=== PATIENT | female | born 1965 | race Caucasian/White ===

== ENCOUNTER 2018-12-16 16:00 | Inpatient (IN) | payer OTHER ==
[~2018-12-16] VITALS: Ht 152.4 cm; Wt 48.5 kg
[2018-12-16 16:32] LABS: Mean Platelet Volume 10.7 fL (9.1-12.4); NRBC ABSOLUTE 0.67 K/mm3 (0.00-0.02); NRBC Auto 7.1 /100 WBC (0.0-0.2); Platelet Count 315 K/mm3 (150-400); White Blood Cell Count 9.46 K/mm3 (4.00-11.30)
[2018-12-16 16:37] LABS: Mean Corpuscular HGB 22.2 pg (26.0-34.0); Mean Corpuscular HGB Conc 23.9 g/dL (31.5-36.5); Mean Corpuscular Volume 93 fL (80-100); Red Blood Cell Count 0.72 M/mm3 (3.80-5.20)
[2018-12-16 16:38] LABS: Hemoglobin 1.6 g/dL (11.5-16.0)
[2018-12-16 16:39] LABS: Hematocrit 6.7 % (33.0-51.0)
[2018-12-16 16:43] LABS: Magnesium, Blood 2.7 mg/dL (1.6-2.4)
[2018-12-16 16:47] LABS: Percent Saturation 2.4 % (15.0-50.0)
[2018-12-16 16:51] LABS: Alanine Aminotransfer (ALT/SGP 121 U/L (12-78); Albumin, Blood 2.6 g/dL (3.4-5.0); Albumin/Globulin Ratio 1.1 (0.8-1.8); Alk Phos 43 U/L (50-136); Aspartate Aminotrans (AST/SGOT 93 U/L (12-37); Bilirubin, Total 0.2 mg/dL (0.1-1.0); Blood Urea Nitrogen 25 mg/dL (8-24); Bun/Creatinine Ratio 30.1 (12.0-20.0); Calcium, Blood 7.5 mg/dL (8.5-10.1); Chloride, Blood 114 mmol/L (98-108); Creatinine, Blood 0.83 mg/dL (0.40-1.00); Globulin, Blood 2.3 g/dL (2.2-4.0); Glomerular Filtration Rate >60 (60-); Glucose, Blood 145 mg/dL (70-99); Potassium, Blood 3.4 mmol/L (3.5-5.5); Sodium, Blood 142 mmol/L (136-145); Total Protein, Blood 4.9 g/dL (6.4-8.2)
[2018-12-16 16:52] LABS: Anion Gap 20 mmol/L (6-16); CO2, Blood 8 mmol/L (21-32)
[2018-12-16 17:07] LABS: BASOPHILS PERCENT MAN 0 % (0-2); EOSINOPHILS PERCENT MAN 0 % (0-6); LYMPHOCYTES ABSOLUTE MAN 0.18 K/mm3 (0.84-5.20); LYMPHOCYTES PERCENT MAN 2 % (21-46); MONOCYTES PERCENT MAN 0 % (4-13); NEUTROPHILS ABSOLUTE MAN 9.27 K/mm3 (1.96-9.15); SEG NEUTROPHILS PERCENT MAN 98 % (41-73); TOTAL CELLS COUNTED 100
[2018-12-16 17:29] LABS: IMMATURE RETIC FRACTION 3.9 % (2.3-16.0); RETIC HGB EQUIVALENT 13.5 pg (28.20-36.60); RETICULOCYTE ABSOLUTE 0.0214 M/mm3 (0.0200-0.1100); RETICULOCYTE COUNT PERCENT 3.01 % (0.50-2.50)
[2018-12-16 17:32] LABS: Source, Urine Catheter
[2018-12-16 17:41] LABS: Bilirubin, Urine Neg (Neg); Blood, Urine Neg (Neg); Glucose Qualitative, Urine Neg (Neg); Ketones, Urine 2+ (Neg); Leukocyte Esterase, Urine Neg (Neg); Nitrite, Urine Neg (Neg); Protein, Urine Neg (Neg); Specific Gravity, Urine 1.015 (1.003-1.022); Urobilinogen, Urine NORM (Normal)
[2018-12-16 18:11] LABS: Appearance, Urine Clear (Clear); Color, Urine Pale Yellow (P-Yellow)
--- NOTE | 2018-12-16 19:49 | NUR ---
ASSESSMENT/ASSUMED CARE PT SITTING UP IN BED WATCHING TV. 3RD UNITS PRBC INFUSING. DENIES PAIN OR DISCOMFORT. ANSWERING QUESTIONS APPROP. LUNGS CLEAR ON ROOMAIR. RESP EVEN AND NONLABORED. DENIES SOB OR COUGH. HEART RATE REGULAR. PULSES STRONG. BT+ ABD SOFT AND NONTENDER. DENIES N/V. IV 20G TO LEFT AC SALINE LOCKED, SITE CLEAR. IV 18G TO RIGHT AC WITH BLOOD INFUSING. PT MOVING SELF AROUND IN BED
--- NOTE | 2018-12-16 20:52 | NUR ---
HYPOTENSION PT BECAME HYPOTENSIVE DURING CHANGE FROM 3RD UNIT PRBC TO 4TH. SBP 60-70. HOSPITALIST KAUSHIK NOTIFIED AND NS 1000ML BOLUS STARTED
--- NOTE | 2018-12-16 21:02 | NUR ---
HOSPITALIST HOSPITALIST KAUSHIK AT BEDSIDE TALKING WITH PT REGARDING [id number]. PT A&O ASWERING QUESTIONS
--- NOTE | 2018-12-16 21:25 | NUR ---
BLEEDING PT HAVING LARGE AMT MAROON LIQUID STOOL. FLEXI SEAL PLACED. HOSPITALIST KAUSHIK NOTIFIED
[2018-12-16 21:50] LABS: Hematocrit 18.1 % (33.0-51.0); Platelet Count 127 K/mm3 (150-400)
[2018-12-16 21:54] LABS: Hemoglobin 5.6 g/dL (11.5-16.0)
[2018-12-16 21:56] LABS: PCO2 Arterial 24.1 mmHg (35-45); PO2 Arterial 115 mmHg (80-100); pH Blood Arterial 7.42 (7.35-7.45)
--- NOTE | 2018-12-16 21:56 | NUR ---
DR MONTEZ AND DR WELCH AT BEDSIDE
--- NOTE | 2018-12-16 21:57 | NUR ---
TXA TRANSFUSION STARTED. PLATLETS INFUSING.
[2018-12-16 22:00] LABS: Calcium, Blood 6.5 mg/dL (8.5-10.1); Magnesium, Blood 2.1 mg/dL (1.6-2.4)
--- NOTE | 2018-12-16 22:15 | NUR ---
EMESIS PT HAVING MAROOON EMESIS. DR TSE AT BEDSIDE WITH DR WELCH. DR WELCH CALLING IN DR JONES AND TO SCOPE CREW TO DO EGD ON PT. PT MED WITH ZOFRAN. WILL BE STARTING NEOSYNEPHRIN AND INTUBATING PT.
[2018-12-16 22:19] LABS: International Normalized Ratio 1.36
--- NOTE | 2018-12-16 22:51 | NUR ---
CRITICAL VALUE DR TSE NOTIFIED REGARDING LACTIC ACID 3.6
--- NOTE | 2018-12-16 23:00 | NUR ---
INTUBATION PT STARTED ON NEOSYNPHRINE AT 50MCQ/MIN FOR HYPOTENSION, INCREASED TO 100 THAN 150 MCQ/MIN DURING INTUBATION. CORDIS PLACED IN RIGHT FEMORAL BY DR TSE FOR BLOOD PRODUCED INFUSION AT 2238. TRANSFUSED FFP AT 2238 AND 2244. PRBC INFUSING. PT MED WITH MIDAZOLAM AND PROPOFOL FOR INTUBATION. DR TSE INTUBATED PT WITH 7.5 ET TUBE AT 26 AT THE LIP WITH GOOD LUNGS SOUNDS BILAT AND COLOR CHANGE. DR JONES TO DO EGD.
--- NOTE | 2018-12-16 23:45 | NUR ---
EGD 2306 PT STARTED ON PROPOFOL GTT AT 20 MCQ/KG/MIN, GTT THEN INCREASED TO UP TO 50 MCQ/KG/MIN DURING EGD FOR SEDATION. PT HAD LARGE MAROON EMESIS AROUND ET TUBE. ET TUBE RETAPED TO 24 AT LIP BY RT PER ORDERS FROM DR TSE AFTER CXR DONE. EGD STARTED AT 2330 AND FINISHED AT [address] DR WELCH AT BEDSIDE. LARGE ULCER FOUND. NEOSYNEPHRINE DECREASED TO 100 MCQ/MIN.
--- NOTE | 2018-12-17 00:16 | NUR ---
12/17/18 0016 Paul Villalpando History, Chart, Medications and Allergies reviewed before start of procedure.MONITOR INTACT WITH CONTINUOUS PULSE OXIMETRY AND INTERMITTENT BP.3-LEAD EKG REVIEWED WITH PHYSICIAN PRIOR TO START OF PROCEDURE.PATIENT VENTILATED WITH PROPOFOL GTT.
[2018-12-17 00:43] LABS: Alanine Aminotransfer (ALT/SGP 59 U/L (12-78); Albumin, Blood 1.8 g/dL (3.4-5.0); Albumin/Globulin Ratio 1.1 (0.8-1.8); Alk Phos 36 U/L (50-136); Anion Gap 9 mmol/L (6-16); Aspartate Aminotrans (AST/SGOT 58 U/L (12-37); Bilirubin, Total 1.1 mg/dL (0.1-1.0); Blood Urea Nitrogen 25 mg/dL (8-24); Bun/Creatinine Ratio 33.3 (12.0-20.0); CO2, Blood 18 mmol/L (21-32); Calcium, Blood 6.6 mg/dL (8.5-10.1); Chloride, Blood 119 mmol/L (98-108); Creatinine, Blood 0.75 mg/dL (0.40-1.00); Globulin, Blood 1.6 g/dL (2.2-4.0); Glomerular Filtration Rate >60 (60-); Glucose, Blood 154 mg/dL (70-99); Sodium, Blood 146 mmol/L (136-145); Total Protein, Blood 3.4 g/dL (6.4-8.2)
--- NOTE | 2018-12-17 00:53 | NUR ---
CRITICAL LABS TROPONIN UP TO 7.22, NOTIFIED HOSPITALIST KAUSHIK. NO NEW ORDERS. H&H UP TO 09/28.0.
--- NOTE | 2018-12-17 01:34 | NUR ---
PRESSORS NEOSYNEPHRINE DC AND LEVOPHED STARTED AT 10 MCQ/MIN.
[2018-12-17 05:41] LABS: BASOPHILS ABSOLUTE AUTO 0.01 K/mm3 (0.00-0.23); BASOPHILS PERCENT AUTO 0 % (0-2); EOSINOPHILS PERCENT AUTO 0 % (0-6); Hematocrit 22.8 % (33.0-51.0); Hemoglobin 7.7 g/dL (11.5-16.0); IMMATURE GRAN ABSOLUTE AUTO 0.07 K/mm3 (0.00-0.10); IMMATURE GRAN PERCENT AUTO 1 % (0-1); LYMPHOCYTES ABSOLUTE AUTO 0.23 K/mm3 (0.84-5.20); LYMPHOCYTES PERCENT AUTO 2 % (21-46); MONOCYTES ABSOLUTE AUTO 0.48 K/mm3 (0.16-1.47); MONOCYTES PERCENT AUTO 3 % (4-13); Mean Corpuscular HGB 28.1 pg (26.0-34.0); Mean Corpuscular HGB Conc 33.8 g/dL (31.5-36.5); Mean Platelet Volume 10.1 fL (9.1-12.4); NEUTROPHILS ABSOLUTE AUTO 14.04 K/mm3 (1.96-9.15); NEUTROPHILS PERCENT AUTO 95 % (41-73); NRBC ABSOLUTE 0.99 K/mm3 (0.00-0.02); NRBC Auto 6.7 /100 WBC (0.0-0.2); Platelet Count 89 K/mm3 (150-400); RDW Coefficient Variation 15.3 % (11.7-14.2); RDW Standard Deviation 46.5 fL (35.1-46.3); Red Blood Cell Count 2.74 M/mm3 (3.80-5.20); White Blood Cell Count 14.83 K/mm3 (4.00-11.30)
[2018-12-17 05:50] LABS: Mean Corpuscular Volume 83 fL (80-100)
[2018-12-17 06:03] LABS: Anion Gap 8 mmol/L (6-16); Blood Urea Nitrogen 25 mg/dL (8-24); Bun/Creatinine Ratio 29.9 (12.0-20.0); CO2, Blood 18 mmol/L (21-32); Calcium, Blood 6.5 mg/dL (8.5-10.1); Chloride, Blood 121 mmol/L (98-108); Creatinine, Blood 0.84 mg/dL (0.40-1.00); Glomerular Filtration Rate >60 (60-); Glucose, Blood 114 mg/dL (70-99); Magnesium, Blood 1.8 mg/dL (1.6-2.4); Potassium, Blood 3.8 mmol/L (3.5-5.5); Sodium, Blood 147 mmol/L (136-145)
--- NOTE | 2018-12-17 06:52 | NUR ---
SHIFT SUMMARY PT RESTING QUIETLY AT THIS TIME. PT INTUBATED DURING THE NIGHT FOR AIRWAY PROTECTION DUE TO VOMITING BLOOD BY DR TSE. VENT SETTINGS AC 16 TV 400 PEEP 5 FIO2 25%. LUNGS CLEAR. HEART RATE REGULAR. BP STABLE ON LEVOPHED AT 10 MCQ/MIN. PT WAS STARTED ON NEOSYNEPHINE BEFORE INTUBATION AND CHANGED OVER TO LEVOPHED AFTER FIRST BAG FINISHED. PT RECEIVED 7 UNITS PRBC, 2 UNITS FFP, 1 UNIT PLATLET, 1 UNIT CRYO AND ONE TIME BOLUS OF TXA. MONITORING H&H TO KEEP HGB ABOVE 7. DR JONES DID EGD AFTER INTUBATION AND FOUND LARGE ULCER, INJECTED EPI. PT MAY NEED TO GO TO SURGERY. DR JONES SPOKE WITH DR KIRBY. DR TSE PLACED CORDIS TO RIGHT FEMORAL. FLEXI SEAL PLACED DUE TO LIQUID MAROON WITH 1100 ML PLUS OUT. OG TO LOW INTER SUCTION WITH 900 ML OUT OF MAROON DRAINAGE. REPORT TO ON COMING NURSE
--- NOTE | 2018-12-17 07:56 | NUR ---
Recieved report fro Xiomara RN. Patient laying supine in bed withHOB at 30m degrees. She is intubated and sedated. She has 7.5 ET 24 cm at lips with vent settingsAC 16, TV 400. FiO2 25% and PEEP 5.0 and sats 100%. She has OG in place to LIS with black/dark maroon output minimal amount <100 ms so far this shift. She has 14 Fr. jennings draing yel;low urine. She has rectal tube with black/dark maroon output moderate amounts approx 200ml this am. She has 20ga IV dressing intact amd site WNL's and is infusing propofol at 50 mcg/kg/min. She also ahs 20 ga LW dressing intact and site WNL's infusing Protonix at 10ml/hr. She has 18ga RAC dressing intact and site WNL's and has been flushed and SL'd. She has cordis right groing dressing intact and WNL's with no bleedibng or hematoma and is infusing Levophed 10mcg/min and just reduced to 9 for systolic s 114 and MAP >80 and NS at 150ml/hr. Patient has response to painful stimuli.
[2018-12-17 08:21] LABS: Hematocrit 24.5 % (33.0-51.0); Hemoglobin 8.4 g/dL (11.5-16.0)
--- NOTE | 2018-12-17 09:48 | NUR ---
Patient mother and friends are here. Dr Wray by and stopped fluids, talked with mother and gave her update. SS by and taled with family and friends. Her Hgb up to 8.4. Levophed remains at 9mcg/min with systolic 106 and MAP> 65. gave partial bath and cleaned bed from leaking rectal tube which remains dark maroon, minimal output from OG maroon. No changes in gtt and vent setting other than NS.
--- NOTE | 2018-12-17 11:30 | NUR ---
Echo in with patient doing procedure. Will reposition when they are done. DFamily has gone home. Sats 100% at same vent setting, SR-ST 90-100. Levophed remains at 9 mcg/min and systolic low 100's and MAP >65. No other changes with gtt's or vent settings. dr York by and assessed patient and no new changes.
--- NOTE | 2018-12-17 13:00 | NUR ---
Dr Chela mackey to assess and talked with Dr Wray and no new orders.
--- NOTE | 2018-12-17 13:30 | NUR ---
Reduced Levophed to 8 mcg/min and systolic low 100's and MAP >65. See EMT VSS. Reposition q2. No new signs of increased bleeding, rectal tube and OG have little maroon output.
[2018-12-17 14:12] LABS: Hematocrit 23.5 % (33.0-51.0); Hemoglobin 7.9 g/dL (11.5-16.0)
--- NOTE | 2018-12-17 15:15 | NUR ---
Per admit trigger, I attempted to meet with pt and family regarding ACP. Pt is alone in room and vented/nonresponsive. I will continue to attempt this conversation in coming days.
--- NOTE | 2018-12-17 15:30 | NUR ---
Have reduced Levophed to 5 mcg/min and systolic remaons above 100 and MAP >65. Dr Price was by to assess patient and possible scope 12/18. Dr Wray by to get update, hgb down from 8.4 to 7.9. VSS
--- NOTE | 2018-12-17 19:00 | NUR ---
ASSUMED CARE ASSUMED CARE OF PATIENT. PT REMAINS INTUBATED- AC 16, TV 400, PEEP 5, FIO2 25%. RR 20. SEDATED WITH PROPOFOL @ 50MCG/KG/MIN. BILATERAL SOFT WRIST RESTRAINTS IN PLACE. MONITOR SHOWS ST, RATE 130s. BP 40s/20s WITH LEVOPHED @ 3MCG/MIN. DR. QUIROZ IN ROOM. LEVOPHED INCREASED TO 10MCG/MIN AND THEN TO 20MCG/MIN. MODERATE AMOUNTS OF RED BLOOD NOTED FROM OG. RECTAL TUBE IN PLACE- NO INCREASE IN STOOL NOTED AT THIS TIME. LR IV BOLUS STARTED. DR. QUIROZ ATTEMPTING TO PLACE ARTERIAL LINE FOR MONITORING. VASOPRESSIN STARTED AT 0.04UNITS/MIN AT 1930. NEOSYNEPHRINE GTT STARTED. DR. KIRBY AND DR. MCALLISTER IN ROOM AT APPROXIMATELY 1999 TO DISCUSS TREATMENT PLAN. FAMILY NOTIFIED AND WILL BE COMING IN. PLAN IS TO TAKE PT TO FLIGHT SECURITY SPECIALIST FOR ANGIOGRAPHY TO CONTROL BLEEDING.
[2018-12-17 19:27] LABS: Hematocrit 18.6 % (33.0-51.0); Hemoglobin 6.4 g/dL (11.5-16.0)
--- NOTE | 2018-12-17 21:00 | NUR ---
PLATE SHEAR OPERATOR PT TO PLATE SHEAR OPERATOR FOR ANGIO PROCEDURE. LEVOPHED @ 30MCG/MIN AND NEOSYNEPHRINE @ 200MCG/MIN. VASOPRESSIN CONTINUES @ 0.04UNITS/MIN. PT HAS RECEIVED THREE UNITS OF PRBCs AND TWO UNITS OF FFP PRIOR TO GOING.
[2018-12-17 21:45] LABS: International Normalized Ratio 1.33; Prothrombin Time Results 13.7 Sec (9.7-11.5)
--- NOTE | 2018-12-17 23:05 | NUR ---
RETURN FROM TIME MOTION ANALYST BACK IN ROOM. NOW HAS LEFT FEMORAL ARTERIAL LINE- BP READING 190s/50s VIA A-LINE WHILE NIBP IS READING 90s/50s. LEVOPHED, VASOPRESSIN, AND NEOSYNEPHRINE INFUSING. PROPOFOL NOW AT 30MCG/KG/MIN.
[2018-12-18 00:37] LABS: PCO2 Arterial 26.8 mmHg (35-45); PO2 Arterial 134 mmHg (80-100); pH Blood Arterial 7.19 (7.35-7.45)
[2018-12-18 00:50] LABS: Hematocrit 19.7 % (33.0-51.0); Hemoglobin 6.6 g/dL (11.5-16.0)
[2018-12-18 00:58] LABS: Magnesium, Blood 1.7 mg/dL (1.6-2.4)
[2018-12-18 00:59] LABS: International Normalized Ratio 1.62; Prothrombin Time Results 16.4 Sec (9.7-11.5)
[2018-12-18 01:00] LABS: Mean Platelet Volume 12.4 fL (9.1-12.4)
[2018-12-18 01:01] LABS: Platelet Count 34 K/mm3 (150-400)
[2018-12-18 01:05] LABS: Albumin, Blood 1.2 g/dL (3.4-5.0); Bilirubin, Direct 0.3 mg/dL (0.0-0.3); Bilirubin, Indirect 0.5 mg/dL (0.1-0.7); Bilirubin, Total 0.8 mg/dL (0.1-1.0); Calcium, Blood 5.9 mg/dL (8.5-10.1); Globulin, Blood 1.2 g/dL (2.2-4.0); Total Protein, Blood 2.4 g/dL (6.4-8.2)
[2018-12-18 01:42] LABS: Anion Gap 14 mmol/L (6-16); Blood Urea Nitrogen 25 mg/dL (8-24); Bun/Creatinine Ratio 25.9 (12.0-20.0); CO2, Blood 12 mmol/L (21-32); Calcium, Blood 5.9 mg/dL (8.5-10.1); Chloride, Blood 120 mmol/L (98-108); Creatinine, Blood 0.97 mg/dL (0.40-1.00); Glomerular Filtration Rate >60 (60-); Glucose, Blood 294 mg/dL (70-99); Potassium, Blood 3.9 mmol/L (3.5-5.5); Sodium, Blood 146 mmol/L (136-145)
[2018-12-18 05:24] LABS: Hematocrit 27.7 % (33.0-51.0); Hemoglobin 9.9 g/dL (11.5-16.0)
[2018-12-18 05:26] LABS: pH Blood Arterial 7.43 (7.35-7.45)
[2018-12-18 05:27] LABS: PCO2 Arterial 26.5 mmHg (35-45); PO2 Arterial 133 mmHg (80-100)
[2018-12-18 05:38] LABS: International Normalized Ratio 1.29
[2018-12-18 05:57] LABS: Alanine Aminotransfer (ALT/SGP 224 U/L (12-78); Albumin, Blood 1.6 g/dL (3.4-5.0); Albumin/Globulin Ratio 0.9 (0.8-1.8); Alk Phos 45 U/L (50-136); Anion Gap 8 mmol/L (6-16); Aspartate Aminotrans (AST/SGOT 248 U/L (12-37); Bilirubin, Total 0.7 mg/dL (0.1-1.0); Blood Urea Nitrogen 22 mg/dL (8-24); Bun/Creatinine Ratio 26.8 (12.0-20.0); CO2, Blood 18 mmol/L (21-32); Calcium, Blood 6.6 mg/dL (8.5-10.1); Chloride, Blood 119 mmol/L (98-108); Creatinine, Blood 0.82 mg/dL (0.40-1.00); Globulin, Blood 1.7 g/dL (2.2-4.0); Glomerular Filtration Rate >60 (60-); Glucose, Blood 183 mg/dL (70-99); Potassium, Blood 3.5 mmol/L (3.5-5.5); Sodium, Blood 145 mmol/L (136-145); Total Protein, Blood 3.3 g/dL (6.4-8.2)
[2018-12-18 06:01] LABS: Prothrombin Time Results 13.4 Sec (9.7-11.5)
--- NOTE | 2018-12-18 06:33 | NUR ---
SHIFT SUMMARY REMAINS INTUBATED- AC 16, TV 400, PEEP 5, FIO2 25%. RR BETWEEN 16-30s. SEDATED WITH PROPOFOL BETWEEN 15-50MCG/KG/MIN- NOW INFUSING @ 45MCG/KG/MIN. MEDICATED WITH FENTANYL 25MCG IV X 1. NOT FOLLOWING COMMANDS. MOVES EXTREMITIES WEAKLY. OCCASIONALLY SEEMS TO PULL AGAINST RESTRAINTS. JANIA, 3MM, SLUGGISH. COLOR IS PALE AND SKIN IS COOL. MONITOR NOW SHOWS SR, RATE 70s. BP STABLE WITH LEVOPHED NOW @ 12MCG/MIN. LEFT FEMORAL ARTERIAL LINE PATENT AND WITH DRSG D/I. NEOSYNEPHRINE HAS BEEN OFF SINCE 229. VASOPRESSIN CONTINUES. BICARB GTT AT 100CC/HR PER ORDER. PROTONIX GTT PER ORDER. OG TO LIS WITH DARK BLACKISH-RED DRAINAGE. RECTAL TUBE HAS BEEN DC'D D/T MULTIPLE CLOTS IN STOOL. PT HAS BEEN INCONTINENT OF LARGE AMOUNTS OF DARK RED STOOL WITH CLOTS. OLMEDO PATENT AND DRAINING YELLOW URINE. WILL REPORT TO DAY SHIFT RN WHEN AVAILABLE.
[2018-12-18 06:53] LABS: Hematocrit 28.4 % (33.0-51.0); Mean Corpuscular HGB 30.6 pg (26.0-34.0); Mean Corpuscular HGB Conc 35.2 g/dL (31.5-36.5); Mean Platelet Volume 10.9 fL (9.1-12.4); NRBC ABSOLUTE 3.29 K/mm3 (0.00-0.02); NRBC Auto 23.8 /100 WBC (0.0-0.2); Platelet Count 100 K/mm3 (150-400); RDW Coefficient Variation 14.6 % (11.7-14.2); RDW Standard Deviation 46.2 fL (35.1-46.3); Red Blood Cell Count 3.27 M/mm3 (3.80-5.20); White Blood Cell Count 13.83 K/mm3 (4.00-11.30)
[2018-12-18 07:01] LABS: Mean Corpuscular Volume 87 fL (80-100)
[2018-12-18 07:21] LABS: BAND PERCENT MAN 11 % (0-8); BASOPHILS PERCENT MAN 0 % (0-2); EOSINOPHILS PERCENT MAN 0 % (0-6); LYMPHOCYTES ABSOLUTE MAN 0.82 K/mm3 (0.84-5.20); LYMPHOCYTES PERCENT MAN 6 % (21-46); METAMYELOCYTE ABSOLUTE MAN 0.13 K/mm3 (0.00-0.00); METAMYELOCYTE PERCENT MAN 1 % (0-0); MONOCYTES ABSOLUTE MAN 0.69 K/mm3 (0.16-1.47); MONOCYTES PERCENT MAN 5 % (4-13); NEUTROPHILS ABSOLUTE MAN 12.17 K/mm3 (1.96-9.15); SEG NEUTROPHILS PERCENT MAN 77 % (41-73); TOTAL CELLS COUNTED 100
--- NOTE | 2018-12-18 07:59 | NUR ---
Recieved report from Isamar GORDON. Patient is supine in bed with HOB at 30 derees, intubated and sedated. She has 7.5 ET and is 24 cm lips and vent settings AC 16, TV 400, FiO2 25% and PEEP 5.0 with sats 100%. She has 14Fr jennings draining to gravity yellow urine. She has art line to left groin, changed dressing and cleaned site. She has Cordis in right groin infusing pressors, cleaned site and changes dressing as well. Patient has 18ga JACQUES dressing intact and site WNL's infusing propofol. She has 20ga IV dressing intact and site WNL's infusing Bicarb gtt. She has 18ga RAC dressing intact and site WNL's and is flushed and SL'd. Patient has sclera edema and pupils sluggish. Pulses doppler on left foot and un able to aquire on right.Gave patient partial bath and changed linen as she has marroon output from rectum about 300ml. Repositioned to left side.
--- NOTE | 2018-12-18 08:12 | NUR ---
Current infusions are Sodium Bicarb at 100ml/hr, Levophed 12mcg/min, Protonix 10ml/hr, Propofol 45 mcg/kg/min, Vasopressin 0.04 units/min
[2018-12-18 08:56] LABS: Hematocrit 30.7 % (33.0-51.0); Hemoglobin 10.5 g/dL (11.5-16.0)
--- NOTE | 2018-12-18 09:46 | NUR ---
No changes in gtt's or vent setting. VSS. Systolic by art line 130-140's, SR 70's and 100% sats on current settings. Dr Barksdale by reviewed patient and talked with family. No real purposeful movemnets, continues to withdrawl from painful stimuli. Donor bank called and recieved update. No current visable bleeding.
--- NOTE | 2018-12-18 11:27 | NUR ---
Levophed decreased to 5 mcg/min for art line readings in the 120's and MAP >65. HR remains 70-80's. She continues to ooz maroon lquid from rectum and clean up patient and linen change q2 hrs. Talked wit Dr Wray about Dr Barksdale request for cardiology consult and he wants to wait a little bit before putting in consult. No vent setting changes and patient continues to sat 100%. When sod. Bicarb runns out Dr. Wray want to stop fluids
[2018-12-18 12:33] LABS: Hematocrit 29.7 % (33.0-51.0); Hemoglobin 10.4 g/dL (11.5-16.0)
--- NOTE | 2018-12-18 13:30 | NUR ---
Stopped sod. Bicarb gtt per Dr Wray and patient systolic 90-100 with MAP >65 and Levophed at 6 mcg/min. She is alittle more arousable with stimulation. Her OG out put had increased slightly with maroon out put and continues to leak same from rectum. Repositioned and bed and patient clean up. No changes to vent settings.
--- NOTE | 2018-12-18 16:52 | NUR ---
No acute changes with patient. Propofol 45 mcg/kg/min, Proptonix 10 ml/hr, Levophed 6 mcg/min, Vasopressin 0.04 units/min. Patient sats 100% on current settings. HR 70-80's and systolic 100-120 and MAP >65. Patient has movement and withdrawl to stimuli. continued small amount of maroon output from OG and minimal from rectum.
--- NOTE | 2018-12-18 17:51 | NUR ---
She had another maroon liquid stool, about 200mls. Dr Hanson by to follow up. Repositioned and lineen change. VSS. Dr Hanson prefer Vasopressin on until tomorrow. Gave report to Joshua GORDON to assume care over patient.
--- NOTE | 2018-12-18 20:30 | NUR ---
ASSUMPTION OF CARE ASSUMED CARE OF PT AT 1900. PT INTUBATED AND SEDATED VENT SET TO AC 16/400/5/25%, O2 SATURATIONS MAINTAINED ABOVE 90%. MONITOR SHOWS NSR, HR 80'S, ART LINE SHOWS MAP'S 80'S-90'S, LEVO AND VASOPRESSIN INFUSING TO MAINTAIN BP. PROPOFOL INFUSING @45, PT ANSWERING YES/NO QUESTIONS APPROPRIATELY, SQUEEZING HAND AND OPENING EYES UPON COMMAND. CENTRAL LINE PRESENT AND INFUSING MEDICATIONS, PERIPHERAL IVx3, RAC INFUSING MEDICATIONS, LFA AND BARBIE FLUSHED WITH 10NS AND SL. OLMEDO DRAINING CLEAR YELLOW URINE. 2000 H&H DECREASED FROM 1200, WILL FOLLOW UP WITH PROVIDER FOR FURTHER ORDERS.
[2018-12-18 20:32] LABS: Hematocrit 23.1 % (33.0-51.0); Hemoglobin 8.3 g/dL (11.5-16.0)
--- NOTE | 2018-12-18 20:51 | NUR ---
CALL TO DR MCALLISTER UPDATED ON PTS MOST RECENT HGB LAB RESULT, NEXT H&H TO BE DRAWN AT 2300. ORDERS TO TRANSFUSE 2 UNITS PRBC IF HGB DROPS BELOW 8 AND PLAN FOR PT TO GO TO LITIGATION COORDINATOR IN THE AM OF 12/19/18.
[2018-12-18 23:21] LABS: Hematocrit 25.3 % (33.0-51.0); Hemoglobin 8.4 g/dL (11.5-16.0)
--- NOTE | 2018-12-18 23:30 | NUR ---
PT GESTURES TOWARDS ETT WITH NURSING CARE, PT SHAKES HEAD "YES" WHEN ASKED IF SHE WANTS ETT OUT. PT DENIES PAIN BUT DISCOMFORT WITH ETT. PROPOFOL INFUSING AT 45, PRN FENTANYL PROVIDED.
[2018-12-19 03:49] LABS: Hematocrit 22.7 % (33.0-51.0); Hemoglobin 7.9 g/dL (11.5-16.0); Mean Corpuscular HGB 31.3 pg (26.0-34.0); Mean Corpuscular HGB Conc 34.8 g/dL (31.5-36.5); Mean Platelet Volume 11.6 fL (9.1-12.4); NRBC ABSOLUTE 0.68 K/mm3 (0.00-0.02); NRBC Auto 5.7 /100 WBC (0.0-0.2); Platelet Count 82 K/mm3 (150-400); RDW Coefficient Variation 15.4 % (11.7-14.2); RDW Standard Deviation 50.1 fL (35.1-46.3); Red Blood Cell Count 2.52 M/mm3 (3.80-5.20); White Blood Cell Count 11.92 K/mm3 (4.00-11.30)
[2018-12-19 03:56] LABS: Mean Corpuscular Volume 90 fL (80-100)
[2018-12-19 04:05] LABS: International Normalized Ratio 0.95; Prothrombin Time Results 10.1 Sec (9.7-11.5)
[2018-12-19 04:14] LABS: Alanine Aminotransfer (ALT/SGP 191 U/L (12-78); Albumin, Blood 1.6 g/dL (3.4-5.0); Anion Gap 5 mmol/L (6-16); Aspartate Aminotrans (AST/SGOT 140 U/L (12-37); Blood Urea Nitrogen 17 mg/dL (8-24); Bun/Creatinine Ratio 23.8 (12.0-20.0); CO2, Blood 24 mmol/L (21-32); Calcium, Blood 6.8 mg/dL (8.5-10.1); Chloride, Blood 114 mmol/L (98-108); Creatinine, Blood 0.72 mg/dL (0.40-1.00); Glomerular Filtration Rate >60 (60-); Glucose, Blood 134 mg/dL (70-99); Magnesium, Blood 1.6 mg/dL (1.6-2.4); Phosphorus, Blood 2.2 mg/dL (2.5-4.9); Potassium, Blood 3.3 mmol/L (3.5-5.5); Sodium, Blood 143 mmol/L (136-145)
[2018-12-19 04:17] LABS: Albumin/Globulin Ratio 0.8 (0.8-1.8); Alk Phos 51 U/L (50-136); Bilirubin, Total 0.4 mg/dL (0.1-1.0); Globulin, Blood 2.1 g/dL (2.2-4.0); Total Protein, Blood 3.7 g/dL (6.4-8.2)
[2018-12-19 04:27] LABS: BAND PERCENT MAN 13 % (0-8); BASOPHILS PERCENT MAN 0 % (0-2); EOSINOPHILS PERCENT MAN 0 % (0-6); LYMPHOCYTES ABSOLUTE MAN 0.11 K/mm3 (0.84-5.20); LYMPHOCYTES PERCENT MAN 1 % (21-46); MONOCYTES ABSOLUTE MAN 0.47 K/mm3 (0.16-1.47); MONOCYTES PERCENT MAN 4 % (4-13); NEUTROPHILS ABSOLUTE MAN 11.32 K/mm3 (1.96-9.15); SEG NEUTROPHILS PERCENT MAN 82 % (41-73); TOTAL CELLS COUNTED 100
--- NOTE | 2018-12-19 05:40 | NUR ---
CALL TO DR MONTEZ REGARDING MORNING LABS (POTASSIUM 3.3, PHOS 2.2, CALCIUM 6.8, MAG 1.6), UPDATED ON HGB OF 7.9 AND CURRENTLY TRANSFUSING UNIT 1 OF 2 OF PRBC. POTASSIUM PHOSPHATE 30mmol IV X1 AND 2G MAGNESIUM IV X1 ORDERED.
--- NOTE | 2018-12-19 06:18 | NUR ---
SHIFT SUMMARY PT REMAINS INTUBATED AND SEDATED. VENT SET TO AC 16/400/5/25% MAINTAINING 02 SATURATIONS ABOVE 90%, BP MAINTAINED ON .04 OF VASOPRESSIN AND LEVO TITRATED DOWN TO 4 THIS SHIFT, HR NSR T/O SHIFT. HGB DROPPED BELOW 8 ON AM LABS, STARTED UNIT 1 OF 2 OF PRBC THIS SHIFT. OLMEDO DRAINING CLEAR YELLOW URINE. PT INCONTINENT OF LIQUID BLOOD MAROON DRAINAGE/STOOL. PT WOKE UP TOWARDS END OF SHIFT, ABLE TO COMMUNICATE VIA PEN AND PAPER WELL YES/NO QUESTIONS. UPDATED PATIENT ON CURRENT SITUATION AND PLAN TO GO TO CATH THIS AM. PT DENIES PAIN AT THIS TIME, COMPLAINS OF DRY MOUTH AND REQUESTS WATER, EXPLAINED NPO STATUS AND PROVIDED ORAL SWAB AND ORAL CARE. PT APPEARS UNCOMFORTABLE, GRIMACING, REACHING FOR ETT AND LIFTING HEAD OFF OF BED, 25 PRN FENTANYL PROVIDED. MORNING LABS SHOWED LOW ELECTROLYTES, REPLACEMENTS ORDERED (SEE PREVIOUS NOTE).
[2018-12-19 12:32] LABS: Hematocrit 19.7 % (33.0-51.0); Hemoglobin 6.9 g/dL (11.5-16.0)
[2018-12-19 18:20] LABS: Hemoglobin 10.1 g/dL (11.5-16.0)
--- NOTE | 2018-12-19 22:18 | NUR ---
ASSUMPTION OF CARE ASSUMED CARE OF PT AT 1900, PT INTUBATED AND SEDATED WITH PROPOFOL AT 50. VENT SET TO AC 16/400/5/25%, 02 SATURATIONS MAINTAINED ABOVE 95%, RESPIRATIONS 16-20 PER MINUTE. PT DROWSY BUT AROUSABLE, DENIES PAIN OR DISCOMFORT, MOVES ALL EXTREMETIES. MONITOR SHOWS NSR, HR 70'S-80'S WITH ST DEPRESSION, BP STABLE WITH MAPS 70'S-80'S, OFF OF PRESSORS. 2200 LAB SHOWS IMPROVED H&H, WILL CONTINUE TO MONITOR FOR BLEEDING.
[2018-12-19 22:20] LABS: Hematocrit 29.8 % (33.0-51.0); Hemoglobin 10.5 g/dL (11.5-16.0)
[2018-12-20 04:15] LABS: BASOPHILS ABSOLUTE AUTO 0.01 K/mm3 (0.00-0.23); BASOPHILS PERCENT AUTO 0 % (0-2); EOSINOPHILS ABSOLUTE AUTO 0.24 K/mm3 (0.00-0.68); EOSINOPHILS PERCENT AUTO 2 % (0-6); Hematocrit 28.7 % (33.0-51.0); Hemoglobin 9.9 g/dL (11.5-16.0); IMMATURE GRAN ABSOLUTE AUTO 0.12 K/mm3 (0.00-0.10); IMMATURE GRAN PERCENT AUTO 1 % (0-1); LYMPHOCYTES ABSOLUTE AUTO 0.38 K/mm3 (0.84-5.20); LYMPHOCYTES PERCENT AUTO 3 % (21-46); MONOCYTES ABSOLUTE AUTO 0.62 K/mm3 (0.16-1.47); MONOCYTES PERCENT AUTO 5 % (4-13); Mean Corpuscular HGB 31.3 pg (26.0-34.0); Mean Corpuscular HGB Conc 34.5 g/dL (31.5-36.5); Mean Corpuscular Volume 91 fL (80-100); Mean Platelet Volume 11.5 fL (9.1-12.4); NEUTROPHILS ABSOLUTE AUTO 11.28 K/mm3 (1.96-9.15); NEUTROPHILS PERCENT AUTO 89 % (41-73); NRBC ABSOLUTE 0.44 K/mm3 (0.00-0.02); NRBC Auto 3.5 /100 WBC (0.0-0.2); Platelet Count 60 K/mm3 (150-400); RDW Coefficient Variation 14.8 % (11.7-14.2); Red Blood Cell Count 3.16 M/mm3 (3.80-5.20); White Blood Cell Count 12.65 K/mm3 (4.00-11.30)
[2018-12-20 04:33] LABS: Anion Gap 5 mmol/L (6-16); Blood Urea Nitrogen 10 mg/dL (8-24); Bun/Creatinine Ratio 17.4 (12.0-20.0); CO2, Blood 25 mmol/L (21-32); Calcium, Blood 7.1 mg/dL (8.5-10.1); Chloride, Blood 114 mmol/L (98-108); Creatinine, Blood 0.58 mg/dL (0.40-1.00); Glomerular Filtration Rate >60 (60-); Glucose, Blood 82 mg/dL (70-99); Magnesium, Blood 2.1 mg/dL (1.6-2.4); Phosphorus, Blood 2.9 mg/dL (2.5-4.9); Potassium, Blood 3.3 mmol/L (3.5-5.5); Sodium, Blood 144 mmol/L (136-145)
--- NOTE | 2018-12-20 06:11 | NUR ---
SHIFT SUMMARY NO ACUTE CHANGES T/O SHIFT, VSS. IMPROVED URINE OUTPUT, 2 SMALL DARK BROWN/BLACK LOOSE STOOL. EDEMA IMPROVED THROUGHOUT SHIFT. PT SLEPT THROUGH MUCH OF SHIFT, PROPOFOL TITRATED TO 40 TOWARDS END OF SHIFT, PT OPENS EYES TO VERBAL STIMULI, FOLLOWS DIRECTIONS, DENIES ANY PAIN OR DISCOMFORT.
--- NOTE | 2018-12-20 07:29 | NUR ---
ASSUMED CARE OF PATIENT. SINUS RHYTHM, HR 70'S, BP 130/70'S. VENT: A/C/16/25%/5 PEEP. AROUSES TO SPEECH, ABLE TO ANSWER YES/NO QUESTIONS. DENIES PAIN. AWAITING PROVIDER ROUNDING.
--- NOTE | 2018-12-20 07:34 | NUR ---
DR. KIRBY AT BEDSIDE FOR ASSESSMENT.
--- NOTE | 2018-12-20 10:52 | NUR ---
DR. ADAME AT BEDSIDE FOR ASSESSMENT. PROPOFOL ON STAND BY. PROVIDER CHANGED VENT TO SPONTANEOUS WITH PS 5. PATIENT ALERT, WILL ORDER DIURETIC, POTASSIUM REPLACEMENT, AND H/H CHECK THIS AFTERNOON. PLAN IS FOR POSSIBLE EXTUBATION THIS AFTERNOON IF STABLE. PATIENT AWAKE, ALERT, FOLLOWS COMMANDS; DENIES PAIN AT THIS TIME.
--- NOTE | 2018-12-20 12:26 | NUR ---
REASSESSMENT: PATIENT AWAKE, FOLLOWS COMMANDS, ABLE TO ANSWER YES/NO QUESTIONS. BILATERAL UE RESTRAINTS IN PLACE. VENT ON SPONT, 25% FIO2, PS 5, TV > 400, RR 11-15. TOLERATING WELL. HRR, NO CHANGE IN PERIPHERAL EDEMA. LASIX GIVEN, WITH EXCELLENT URINE OUTPUT. EDUCATED PATIENT ABOUT EXTUBATION, WILL GIVE PRECISE INSTRUCTIONS WHEN THE TIME COMES. SKIN INTACT. DENIES PAIN.
[2018-12-20 16:51] LABS: Hematocrit 31.6 % (33.0-51.0); Hemoglobin 10.7 g/dL (11.5-16.0)
--- NOTE | 2018-12-20 17:50 | NUR ---
SHIFT SUMMARY: A&O X 3, PLEASANT. EXTUBATED AND RESTRAINTS OFF AT 1412 TODAY, TOLERATED WELL. NOW ON RA, SATS >95%, WEAK COUGH. REPEAT H/H 10.7/31.6, STABLE. PER DR. ADAME, WILL KEEP CORDIS AND OLMEDO O/N. OLMEDO DRAINING CLEAR YELLOW WITH SEDIMENT. ATE ~25% OF DINNER, REQUIRED SOME FEEDING ASSISTANCE D/T WEAKNESS. LUNG SOUNDS WITH SCATTERED RHONCHI. REPLACED POTASSIUM WITH 60 MEQ IV. DENIED PAIN ALL SHIFT.
--- NOTE | 2018-12-20 20:00 | NUR ---
ASSUMED CARE OF PT. REPORT RECEIVED AT BEDSIDE. GROIN SITES CHECKED AND VERIFIED WITH OFFGOING RN. PT PRESENTS IN BED WITH RATHER FLAT AFFECT. DENIES PAIN AT THIS TIME. NO S/S BLEEDING. PT HAS PALE COMPLEXION AT THIS TIME. DISCUSSED WITH PT TURNS, AND PLAN FOR THIS NIGHT. WILL REVIEW CHART AND PLAN OF CARE FOR THIS PT.
--- NOTE | 2018-12-20 23:00 | NUR ---
PT STATES THAT SHE IS FEELING SOMEWHAT BETTER. TOLERATES TURNS IN BED WELL. CONTINUES WITHOUT S/S BLEEDING. CONTINUES ON ROOM AIR WHEREAS SHE IS ABLE TO MAINTAIN > 90 PERCENT SATURATIONS. DOES HAVE UPPER LEFT LUNG RHONCHI. PT IS ABLE TO USE YAUNKEUR TO CLEAR HER OWN SECRETIONS. PT DOES JOKE ABOUT "WHEN IS BREAKFAST". WILL CONTINUE TO MONITOR PT.
--- NOTE | 2018-12-21 02:36 | NUR ---
PT CONTINUES ON PROTONIX DRIP. HAVE DISCUSSED WITH PT PROTONIX AND HOW IT WORKS. PT VERBALIZES UNDERSTANDING. WILL CONTINUE TO MONITOR.
[2018-12-21 05:06] LABS: BASOPHILS ABSOLUTE AUTO 0.02 K/mm3 (0.00-0.23); BASOPHILS PERCENT AUTO 0 % (0-2); EOSINOPHILS ABSOLUTE AUTO 0.21 K/mm3 (0.00-0.68); EOSINOPHILS PERCENT AUTO 2 % (0-6); Hematocrit 28.5 % (33.0-51.0); Hemoglobin 9.6 g/dL (11.5-16.0); IMMATURE GRAN ABSOLUTE AUTO 0.16 K/mm3 (0.00-0.10); IMMATURE GRAN PERCENT AUTO 1 % (0-1); LYMPHOCYTES ABSOLUTE AUTO 0.38 K/mm3 (0.84-5.20); LYMPHOCYTES PERCENT AUTO 3 % (21-46); MONOCYTES ABSOLUTE AUTO 0.68 K/mm3 (0.16-1.47); MONOCYTES PERCENT AUTO 5 % (4-13); Mean Corpuscular HGB 32.2 pg (26.0-34.0); Mean Corpuscular HGB Conc 33.7 g/dL (31.5-36.5); Mean Platelet Volume 11.2 fL (9.1-12.4); NEUTROPHILS ABSOLUTE AUTO 12.48 K/mm3 (1.96-9.15); NEUTROPHILS PERCENT AUTO 90 % (41-73); NRBC ABSOLUTE 0.09 K/mm3 (0.00-0.02); NRBC Auto 0.6 /100 WBC (0.0-0.2); Platelet Count 69 K/mm3 (150-400); RDW Standard Deviation 51.8 fL (35.1-46.3); Red Blood Cell Count 2.98 M/mm3 (3.80-5.20); White Blood Cell Count 13.93 K/mm3 (4.00-11.30)
[2018-12-21 05:11] LABS: Mean Corpuscular Volume 96 fL (80-100)
[2018-12-21 05:29] LABS: Anion Gap 5 mmol/L (6-16); Blood Urea Nitrogen 9 mg/dL (8-24); Bun/Creatinine Ratio 16.8 (12.0-20.0); CO2, Blood 25 mmol/L (21-32); Calcium, Blood 7.4 mg/dL (8.5-10.1); Chloride, Blood 113 mmol/L (98-108); Creatinine, Blood 0.54 mg/dL (0.40-1.00); Glomerular Filtration Rate >60 (60-); Glucose, Blood 89 mg/dL (70-99); Potassium, Blood 3.3 mmol/L (3.5-5.5); Sodium, Blood 143 mmol/L (136-145)
--- NOTE | 2018-12-21 06:47 | NUR ---
PT HAS NO S/S BLEEDING THIS NIGHT. CONTINUES ON PROTONIX DRIP. PT REMAINS WITH FLAT AFFECT THOUGH PLEASANT WITH ALL CARE. HAS HAD WEAK COUGH THAT SHE IS UNABLE TO CLEAR. DOES KEEP YAUNKEUR SUCTION AVAILABLE FOR HER TO SELF CLEAR SECRETIONS IF ABLE. WILL CONTINUE TO MONITOR PT. AND WILL REPORT OFF TO ONCOMING RN.
--- NOTE | 2018-12-21 10:17 | NUR ---
PATIENT'S NEIGHBOR AND MOM VISITING. DR. JONES AT BEDSIDE FOR ASSESSMENT, STATED OK TO ADVANCE DIET. EDUCATED PT THAT SHE WOULD NEED TO BE ON PPI FOR SEVERAL MONTHS WITH FOLLOW UP WITH GI OUTPT.
--- NOTE | 2018-12-21 11:41 | NUR ---
DR. ADAME AT BEDSIDE FOR ASSESSMENT. GAVE VERABL ORDERS TO REMOVE CORDIS AND OLMEDO, AND FOR PT TO BE OOB TO CHAIR.
--- NOTE | 2018-12-21 11:57 | NUR ---
DR FRANCISCO: PROVIDER AT BEDSIDE TO EVAL PT. UPDATED HIM ON PT's CONDITION. HE STS THAT SURGICAL SERVICES WILL BE SIGNING OFF PT HAS HAD NO FURTHER BLEEDING. WILL CONTINUE TO MONITOR & UPDATE NEEDED.
--- NOTE | 2018-12-21 13:22 | NUR ---
EDUCATED PATIENT ABOUT PROCEDURE TO REMOVE R FEMORAL CORDIS CL; VERBALIZED UNDERSTANDING. PLACED PATIENT IN SUPINE POSITION. REMOVED DRESSING. CLEANED SURROUNDING SKIN WITH CHLORAPREP. PREPARED XEROFOAM AND 2X2 GAUZE DRESSING, TEGADERM. DONNED STERILE GLOVES. CUT SUTURES ON BOTH SIDE OF LINE USING STERILE TECHNIQUE. PLACED OCCLUSIVE DRESSING ON TOP, INSTRUCTED PT TO TAKE DEEP BREATH AND HUM WHILE LINE BEING REMOVED. LINE OUT AT 1308. DIRECT PRESSURE HELD FOR 10 MINUTES. NO BLEEDING NOTED. GAUZE AND XEROFOAM DRESSING COVERED WITH TEGADERM. EDUCATED PT TO KEEP LEG STRAIGHT FOR 4 HOURS AND TO CALL FOR ALL NEEDS; VERBALIZED UNDERSTANDING. PT TOLERATED WELL, IS RESTING COMFORTABLY.
--- NOTE | 2018-12-21 17:44 | NUR ---
OLMEDO REMOVED AT THIS TIME WNL, PT TOLERATED WELL. PT NOW SITTING UP IN BED EATING DINNER, VSS.
--- NOTE | 2018-12-21 18:17 | NUR ---
RECEIVED REPORT FROM EVAN HUMPHREY
--- NOTE | 2018-12-21 18:28 | NUR ---
REPORT GIVEN TO MICHAEL GORDON ON MEDICAL FLOOR. PATIENT TRANSFERRED TO ROOM 360 VIA BED WITH ALL BELONGINGS.
--- NOTE | 2018-12-21 18:39 | NUR ---
PT ARRIVED TO FLOOR VIA HOSPITAL BED AND IN NO ACUTE DISTRESS; ORIENTED TO ROOM AND EXPLAINED FREQUENT ROUNDING SCHEDULE. BED LOW AND IN LOCKED POSITION, CALL LIGHT WITHIN REACH. PT HAS BRUISING TO JACQUES AND PICC LINE TO BARBIE. BP TAKEN ON RIGHT LOWER EXT.
--- NOTE | 2018-12-21 21:40 | NUR ---
PROVIDER COMMUNICATION CALLED [facility] PHYSICIAN REGARDING UPWARD TREND IN PATIENT'S BLOOD PRESSURE AND NO OUTPUT OF URINE SINCE HER OLMEDO WAS DC'D AT 1745. DR. JARQUIN ORDERED A BLADER SCAN AND TO INSERT A OLMEDO CATHETER IF THERE WAS RETENTION > 400 ML. HE ALSO ORDERED HYDRAZALINE 10 MG IV Q6 NEEDED FOR ELEVATED BLOOD PRESSURE.
--- NOTE | 2018-12-22 01:34 | NUR ---
OLMEDO CATHETER INSERTED AT [address] ORDER DUE TO BLADDER SCAN SHOWING > 400 ML OF URINE RETAINED IN BLADDER AFTER PATIENT ATTEMPTED TO VOID.
[2018-12-22 02:57] LABS: Source, Urine Catheter
[2018-12-22 03:00] LABS: Appearance, Urine Cloudy (Clear); Bilirubin, Urine Neg (Neg); Blood, Urine 4+ (Neg); Color, Urine Yellow (P-Yellow); Glucose Qualitative, Urine Neg (Neg); Ketones, Urine Neg (Neg); Leukocyte Esterase, Urine 3+ (Neg); Nitrite, Urine Pos (Neg); Protein, Urine 1+ (Neg); Specific Gravity, Urine 1.005 (1.003-1.022); Urobilinogen, Urine 1+ (Normal)
[2018-12-22 03:05] LABS: Red Blood Cells, Urine 0-2 /hpf (0-2); White Blood Cells, Urine 50-100 /hpf (0-5)
[2018-12-22 03:06] LABS: Bacteria Many /hpf; Squamous Epithelial Cells Not Seen /hpf (Few)
[2018-12-22 04:56] LABS: Hemoglobin 9.8 g/dL (11.5-16.0); Mean Corpuscular HGB 32.2 pg (26.0-34.0); Mean Corpuscular HGB Conc 32.7 g/dL (31.5-36.5); Mean Platelet Volume 10.7 fL (9.1-12.4); NRBC ABSOLUTE 0.02 K/mm3 (0.00-0.02); NRBC Auto 0.2 /100 WBC (0.0-0.2); Platelet Count 86 K/mm3 (150-400); RDW Coefficient Variation 16.9 % (11.7-14.2); Red Blood Cell Count 3.04 M/mm3 (3.80-5.20); White Blood Cell Count 11.64 K/mm3 (4.00-11.30)
[2018-12-22 04:59] LABS: Mean Corpuscular Volume 99 fL (80-100)
--- NOTE | 2018-12-22 06:06 | NUR ---
SHIFT SUMMARY PATIENT CALM AND COOPERATIVE. HAS SOME DIFFICULTY MAKING NEEDS KNOWN DUE TO DELAYED RESPONSE. SHE WAS HAVING UPWARD TRENDING BLOOD PRESSURES THE FIRST HALF OF THE SHIFT FOR WHICH SHE WAS PRESCRIBED PRN HYDRALAZINE. BP WAS REASSESSED AND CAME DOWN ON ITS OWN AND THERE WAS NO NEED FOR THE MEDICATION AT THIS TIME.SHE HAS BEEN RETAINING URINE AND HAD A OLMEDO CATHETER PLACED AT 0050. PICC LINE IN RIGHT ARM PATENT AND FLUSHED. SHE IS VERY WEAK AND REQUIRES TWO PERSON ASSISTANCE FOR TRANSFERS. BED IN LOWEST POSITION WITH WHEELS LOCKED AND ALARM ON. CALL LIGHT AND BELONGINGS WITHIN REACH. REPORT GIVEN TO ONCOMING RN.
--- NOTE | 2018-12-22 18:43 | NUR ---
SHIFT SUMMARY QUIET, ANSWERS MOST QUESTIONS WITH ONE WORD ANSWERS. EATING AND DRINKING WELL. AMBULATED IN ROOM WITH GAIT BELT AND FWW TODAY TOLERATED WITH MINIMAL ASSIST. DENIES ANY PAIN. FAMILY AND FRIENDS TO VISIT. APPEARS IMPROVED FROM YESTERDAY. OLMEDO IN PLACE DRAINING YELLOW URINE. GENERALIZED EDEMA IMPROVING.
--- NOTE | 2018-12-23 04:08 | NUR ---
SHIFT SUMMARY- PT. A&O, SLOW TO RESPOND. PLEASANT AND COOPERATIVE WITH CARE. HAD NO ACUTE CHANGES OVERNIGHT. BP IMPROVING T/O THE NIGHT. OLMEDO CATHETER PATENT AND DRAINING WELL. PT. DENIED ANY PAIN OR DISCOMFORT T/O THE SHIFT. FEMORAL OP SITES C/D/I AND PICC TO THE [facility]. CALL LIGHT WITHIN REACH AND SIDE RAILS UP X2 WILL CONT TO MONITOR.
[2018-12-23 05:53] LABS: Mean Corpuscular HGB 31.4 pg (26.0-34.0); Mean Corpuscular HGB Conc 31.3 g/dL (31.5-36.5); Mean Corpuscular Volume 101 fL (80-100); Mean Platelet Volume 10.5 fL (9.1-12.4); Platelet Count 91 K/mm3 (150-400); RDW Coefficient Variation 16.7 % (11.7-14.2); RDW Standard Deviation 55.9 fL (35.1-46.3); Red Blood Cell Count 3.18 M/mm3 (3.80-5.20); White Blood Cell Count 7.98 K/mm3 (4.00-11.30)
[2018-12-23 06:08] LABS: Anion Gap 5 mmol/L (6-16); Blood Urea Nitrogen 9 mg/dL (8-24); Bun/Creatinine Ratio 18.9 (12.0-20.0); CO2, Blood 29 mmol/L (21-32); Chloride, Blood 106 mmol/L (98-108); Creatinine, Blood 0.48 mg/dL (0.40-1.00); Glomerular Filtration Rate >60 (60-); Glucose, Blood 111 mg/dL (70-99); Sodium, Blood 140 mmol/L (136-145)
[2018-12-23] MEDS ORDERED: ACET325 PO (11:37)
[2018-12-23] MEDS ORDERED: FERSU300 PO (11:37)
[2018-12-23] MEDS ORDERED: THERA1 EACH PO (11:38)
[2018-12-23] MEDS ORDERED: PANT20 PO (11:39)
--- NOTE | 2018-12-23 14:30 | NUR ---
PT DISCHARGED THE PT WAS DISCHARGED VIA WHEELVCHAIR TO [facility] A/OX3, REPORT CALLED TO THE RN ASSUMING CARE THE PT WAS ACCOMPANIED BY ESC[facility], BELONGINGS RELEASED TO SELF, PICC LINE AND OLMEDO CATH DC'D PER MD ORDER, PT APPEARED TO BE BREATHING EASILY ON RA
== END 2018-12-23 16:29 | DRG 356 ==
LOC: ER 16:00 → ICUW 18:03 → MEDS 12-21 18:27 → ENPENDDIS 12-23 11:01 → MEDS 12-23 16:29
PROVIDERS: Emergency Medicine; Internal Medicine; Internal Medicine Critical Care Medicine; Internal Medicine Pulmonary Disease; Nurse Practitioner Acute Care; Student in an Organized Health Care Education/Training Program; Surgery; ADMIT Hospitalist
PROC: 0BH17EZ Insertion of Endotracheal Airway into Trachea, Via Natural or Artificial Opening (ICD-10-PCS; 2018-12-16)
PROC: 5A1945Z Respiratory Ventilation, 24-96 Consecutive Hours (ICD-10-PCS; 2018-12-16)
PROC: 3E033XZ Introduction of Vasopressor into Peripheral Vein, Percutaneous Approach (ICD-10-PCS; 2018-12-16)
PROC: 02HV33Z Insertion of Infusion Device into Superior Vena Cava, Percutaneous Approach (ICD-10-PCS; 2018-12-16)
PROC: 3E0G8GC Introduction of Other Therapeutic Substance into Upper GI, Via Natural or Artificial Opening Endoscopic (ICD-10-PCS; 2018-12-16)
PROC: 30233K1 Transfusion of Nonautologous Frozen Plasma into Peripheral Vein, Percutaneous Approach (ICD-10-PCS; 2018-12-16)
PROC: 04L23DZ Occlusion of Gastric Artery with Intraluminal Device, Percutaneous Approach (ICD-10-PCS; principal; 2018-12-16 23:00)
PROC: 0W3P8ZZ Control Bleeding in Gastrointestinal Tract, Via Natural or Artificial Opening Endoscopic (ICD-10-PCS; 2018-12-16 23:00)
PROC: 30233N1 Transfusion of Nonautologous Red Blood Cells into Peripheral Vein, Percutaneous Approach (ICD-10-PCS; 2018-12-17)
DX: K26.4 Chronic or unspecified duodenal ulcer with hemorrhage (principal); I21.A1 Myocardial infarction type 2; J96.01 Acute respiratory failure with hypoxia; R57.8 Other shock; D62 Acute posthemorrhagic anemia; I95.9 Hypotension, unspecified; R55 Syncope and collapse; E87.6 Hypokalemia; Z88.0 Allergy status to penicillin
CPT/HCPCS: 31500; 31720; 36245; 36246; 36247; 36415; 36430; 36556; 36569; 36600; 37244; 51702; 71045; 75726; 75774; 80047; 80048; 80053; 80076; 81001; 81003; 82272; 82310; 82330; 82607; 82728; 82746; 82803; 82947; 83010; 83540; 83550; 83605; 83615; 83735; 84100; 84484; 85014; 85018; 85025; 85027; 85045; 85049; 85384; 85610; 85730; 86850; 86900; 86901; 86923; 93005; 93010; 93306; 94002; 94003; 97110; 97116; 97161; 97166; 97530; 97535; 99152; 99153; 99285-25; C1751; C1760; C1769; C1887; C1894; C9113; J0171; J0610; J1430; J1940; J2250; J2370; J2405; J2704; J2765; J2916; J3010; J3475; J3480; J7030; J7040; J7050; J7060; J7070; J7120; P9012; P9016; P9035; P9059; Q9967

== ENCOUNTER → 2022-12-01 | Outpatient (CLI) | payer OTHER ==
[~2022-12-01] MED LIST: ACET325 PO; FERSU300 PO; PANT20 PO; THERA1 EACH PO
[2022-12-04 14:35] LABS: Stool Occult Bld Immuno 1 Negative (NEGATIVE)
== END ==
LOC: LAB 11-28 08:00 → LAB SHORT 12-04 08:00
PROVIDERS: Family Medicine
DX: Z12.11 Encounter for screening for malignant neoplasm of colon (principal)
CPT/HCPCS: G0328